=== PATIENT | male | born 1970 | race African-American/Black ===

== ENCOUNTER 2017-03-29 20:25 | Observation (INO) | payer OTHER ==
--- NOTE | ~2017-03-29 | DS ---
Unit #: [id number] #: [id number] Patient: CYNTHIA PARKS [id number] [address] [address] [id number] I MR#: [id number] NAME: CYNTHIA PARKS. ROOM: [facility] Age: 46 Sex: M Admission Date: 03/29/2017 : 1970 Discharge Date: 03/30/2017 Attending Physician: Arlene Morgan M.D. Primary Care Physician: Primary Care Physician No DISCHARGE SUMMARY DISCHARGE DIAGNOSES 1. Acute rhabdomyolysis. 2. Hypovolemic hyponatremia. 3. History of asthma, stable. 4. History of schizophrenia, stable. CONSULTANTS None. PROCEDURES None. DIAGNOSTIC STUDIES LABORATORY: Sodium 130, potassium 3.9, creatinine 1.3, CK 1605. WBC 9.5, hemoglobin 14.9, platelets 208. IMAGING: Chest x-ray normal. ALLERGIES Aspirin. DISCHARGE MEDICATIONS Albuterol one puff inhalation q.i.d. p.r.n. shortness of breath. HOSPITAL COURSE This 46-year-old was admitted because of muscle spasms. 1. Acute rhabdomyolysis. The patient given IV fluids, his CK is trending down. Advised to take p.o. fluids at home. 2. Hypovolemic hyponatremia. Patient received IV fluids and sodium normalized. 3. History of asthma, stable. Continue with albuterol. 4. History of schizophrenia, stable. DISCHARGE INSTRUCTIONS Patient is to follow with his psychiatrist as an outpatient. Currently, he is not taking any kind of medications. The patient did not have any hallucinations or suicidal or homicidal ideations currently. DISPOSITION Discharged home. FOLLOWUP 1. Family physician in 1 to 2 weeks' time. 2. Psychiatrist in 3 to 4 weeks' time. Unit #: [id number] #: [id number] Patient: CYNTHIA PARKS Dictated by... Noris Noel TD: 03/30/2017 20:57 JOB #: [id number] DISCHARGE SUMMARY Page 1 of 1 X Arlene Morgan MD X DISCHARGE SUMMARY
--- NOTE | ~2017-03-29 | EKG ---
PATIENT: CYNTHIA PARKS UNIT #: [id number] Ventricular Rate: 74 BPM Atrial Rate: 74 BPM P-R Interval: 136 ms QRS Duration: 94 ms Q-T Interval: 436 ms QTC Calculation(Bezet): 483 ms P [place]: 57 degrees Calculated R [place]: 18 degrees Calculated T [place]: 21 degrees Diagnosis Line: Normal sinus rhythm Diagnosis Line: Early repolarization Diagnosis Line: Prolonged QT Diagnosis Line: Abnormal ECG Diagnosis Line: When compared with ECG of 25-NOV-2016 18:57, Diagnosis Line: QT has lengthened Diagnosis Line: Confirmed by LUCIE JACKSON MD ([id number]) on 04/01/2017 Diagnosis Line: 9:43:18 AM INTERPRETING MD: MANUEL CHAPMAN
--- NOTE | ~2017-03-29 | CR72 ---
[facility] A Service of [facility] RADIOLOGY TEXT RESULTS PATIENT: CYNTHIA PARKS LOCATION: [facility] 307- : 74 UNIT #: [id number] AGE: [address]: Arlene Morgan MD SEX: M ORDER DR: [id number] [facility] [address] [facility]. [place], [place] [address] [id number] I MR#: [id number] Acc #: [id number] NAME: CYNTHIA PARKS. : 1970 SEX: M STUDY DATE/TIME: 03/29/2017 22:10 UNIT: [address] ROOM: [facility] STUDY DESCRIPTION: CR Chest Single View Portable Attending Physician: Arlene Morgan M.D. Ordering Physician: Emily Soto M.D. Primary Care Physician: Primary Care Physician No MEDICAL IMAGING REPORT This report is preliminary unless electronic signature is present EXAM Portable chest, 03/29/2017 HISTORY Chest congestion with nausea, vomiting and diarrhea for 3 days. FINDINGS A single AP portable view of the chest shows both lungs to be clear. The heart is normal in size. The mediastinal contour is normal. No significant bone abnormalities are seen. IMPRESSION Normal portable chest. Dictated by... Franko Sharpe M.D. THIS IS AN ELECTRONICALLY VERIFIED REPORT Franko Sharpe M.D. at 03/30/2017 10:47 AM BATSHEVA/rio TD: 03/30/2017 08:52 JOB #: [id number] MEDICAL IMAGING REPORT Page 1 of 1 COPY
--- NOTE | ~2017-03-29 | HP ---
Unit #: [id number] #: [id number] Patient: CYNTHIA PARKS [id number] [address] [place], [place] [address] [id number] I MR#: [id number] NAME: CYNTHIA PARKS. ROOM: [facility] Age: 46 Sex: M Admission Date: 03/29/2017 : 1970 Attending Physician: Mai Persno M.D. Primary Care Physician: No Primary Care Physician HISTORY AND PHYSICAL CHIEF COMPLAINT Muscle spasms. HISTORY OF PRESENT ILLNESS The patient is a 46-year-old male with a history of psychotic behavior and known diagnosis of schizophrenia, presented to the emergency room complaining of the muscle spasms. The patient stated the patient has been having these problems since Thursday associated with nausea, vomiting, diarrhea. The patient attributed the symptoms to the workout that he had on Thursday. The patient stated he had been incarcerated from October through August of last year and patient was seen by the psychiatric physician during his detention time. The patient was on Lexapro at that time. The patient has not been on any medication since then. The patient denies any recent abuse of illicit drug abuse. The patient has been admitted for elevated CK levels of 1938 and hyponatremia of 130. The patient denies any fever, chills, nausea or vomiting. PAST MEDICAL HISTORY 1. History of asthma. 2. Schizophrenia. PAST SURGICAL HISTORY Nothing. ALLERGIES He is allergic to Tylenol. SOCIAL HISTORY He smokes (1) . Denies alcohol. Admits to using marijuana on occasion in the past. FAMILY HISTORY He lives with his mother and is unemployed. Reviewed and none. REVIEW OF SYSTEMS Fourteen point review of systems was performed and only pertinent positive findings are described above, remaining are negative. PHYSICAL EXAMINATION GENERAL: The patient is sitting on the bed, not in acute distress. VITALS: Temperature 97.3, pulse 97, respiratory rate 16, blood pressure 143/77, sat'ing 100% at room air. HEAD: Atraumatic, normocephalic. EENT: Pupils equal, round, reactive to light and accommodation. Unit #: [id number] #: [id number] Patient: CYNTHIA PARKS Extraocular movements are intact. NECK: Supple. LUNGS: Decreased air entry at the bases. HEART: Regular rate and rhythm. ABDOMEN: Soft. Positive bowel sounds. EXTREMITIES: No cyanosis, no clubbing. NEUROLOGICAL: Alert, awake, oriented. No gross focal motor deficit. DIAGNOSTIC STUDIES LABORATORY DATA: Glucose 110, BUN 15, creatinine 1.4, sodium 130, potassium 3.5, chloride 95, bicarb 22, calcium 9.6, total protein 8.7, albumin 5, AST 46, ALT 26, alkaline phosphatase 84, amylase 26, lipase 29, CK 1938, troponin less than 0.05. WBC 18.1, hemoglobin 16.1, hematocrit 48, platelets 239, neutrophils 31.3. Urine tox is pending. UA is negative. IMAGING: Chest x-ray is negative. CARDIOVASCULAR: EKG shows normal sinus rhythm with nonspecific ST-T changes and QTC of 483. ASSESSMENT AND PLAN 1. Rhabdomyolysis. 2. Hyponatremia. 3. History of schizophrenia. Plan is to admit patient to observation with telemetry. Continue with normal saline at 25 mL/hour and heart healthy diet. Patient will be seen by the psych for the schizophrenia for the medications. Continue with Duo-Nebs q.4 p.r.n. and will follow with urine tox that is pending. Further recommendations will follow. Dictated by Noris Oliveira TD: 03/30/2017 05:21 JOB #: [id number] HISTORY AND PHYSICAL Page 1 of 1 X X HISTORY AND PHYSICAL
--- NOTE | ~2017-03-29 | CO ---
Unit #: [id number] #: [id number] Patient: CYNTHIA EDMONDSON [id number] [facility] [address] [facility]. [place], [place] [address] [id number] I MR#: [id number] NAME: CYNTHIA EDMONDSON. ROOM: 307 Age: 46 Sex: M Admission Date: 03/29/2017 : 1970 Attending Physician: Arlene Morgan M.D. Consultation Date: 03/30/2017 CONSULTATION REPORT REASON FOR CONSULTATION Depression, anxiety, bipolar disorder, currently on no medication. HISTORY OF PRESENT ILLNESS Mr. Edmondson is a 46-year-old male, seen in room 307, bed 1 on 03/30/2017 at [facility]. The patient was admitted on 03/29/2017 with muscle spasm. The patient reported that he was receiving services when he was incarcerated from October to August last year in [facility]. The patient reported he was treated with Lexapro. The patient reported that he started having problem with the headache and stopped medication. The patient currently denied any suicidal or homicidal ideation. Denied any psychotic symptom. The patient reports that he would like to go without any medication. Denied any use of any drugs or alcohol. The patient denied any use of any recent use of drugs. The patient was admitted for elevated CK level of 1938 and hyponatremia. The patient denied any psychotic symptom at this time. PAST PSYCHIATRIC HISTORY Remarkable for history of schizophrenia, bipolar disorder, depression, history of treatment through [facility]. MEDICAL HISTORY History of asthma. MEDICATIONS Please refer to MAR. FAMILY HISTORY AND SOCIAL HISTORY The patient has a good support system from his girlfriend. No history of abuse. No history of any substance abuse. REVIEW OF SYSTEMS Complete review of systems is unremarkable. MENTAL STATUS EXAMINATION Vital signs; temperature 97.8, pulse 67, respiratory rate 17, blood pressure 132/83, oxygen saturation 100%. General appearance, the patient dressed casually in hospital attire, sitting comfortably in bed, made good eye contact, cooperative. Attention and concentration, fair. Speech, regular rate and coherent. Oriented in time, place, and person. Mood and affect were sad and dysphoric. Thought process, coherent. Thought content, the patient denied any thoughts of harming self or others or any psychotic symptom. Recent and remote memory, fair. Language, intact. Fund of knowledge, fair. Insight and judgment, fair to slightly impaired. Unit #: [id number] #: [id number] Patient: CYNTHIA EDMONDSON DIAGNOSES Psychiatric: Bipolar mood disorder, not otherwise specified, F31.89. Secondary diagnosis: Deferred. Medical diagnosis: Please refer to H and P. Stressors: Psychosocial stressors. ASSESSMENT/PLAN 1. Supportive psychotherapy and psychoeducation provided to the patient. 2. Educated about benefits and side effects of medication and course and prognosis of illness. 3. Advised no medication at this time, as the patient does not want to be on any medication. At this time, the patient was given crisis line number of [facility] [phone] and also please feel free to call if any questions, telephone #[phone]. Dictated by... Noris Camilo/pavan TD: 03/31/2017 00:53 JOB #: [id number] CONSULTATION REPORT Page 1 of 1 X Fly Leyva MD X CONSULTATION REPORT
[2017-03-29 20:36] LABS: BASOPHIL# 0.2 X10e3 (0-0.3); BASOPHIL% 1.1 % (0-2.5); DIFF IND YES; EOSINOPHIL# 0.1 X10e3 (0-0.7); EOSINOPHIL% 0.4 % (0.0-7.0); HEMOGLOBIN 16.1 gm/dL (13.0-16.0); LYMPHOCYTE% 10.8 % (17.0-45.0); MEAN CELL VOLUME 87.2 FL (83-96); MEAN CORPUSCULAR HEMOGLOBIN 29.2 PG (28-34); MEAN CORPUSCULAR HGB CONC 33.5 g/dL (30-36); MEAN PLATELET VOLUME 8.7 FL (6.5-11.5); MONOCYTE# 1.2 X10e3 (0-1.0); MONOCYTE% 6.4 % (3.0-12.0); NEUTROPHIL# 14.7 X10e3 (1.5-7.1); NEUTROPHIL% 81.3 % (40-75); PLATELET COUNT 239 X10e3 (140-420); RED BLOOD COUNT 5.51 X10e (3.90-5.60); RED CELL DISTRIBUTION WIDTH 12.8 % (11.0-15.5); WHITE BLOOD COUNT 18.1 X10e3 (4.0-10.5)
[2017-03-29 20:53] LABS: PLATELET ESTIMATE NORMAL (NORMAL); RBC NORMAL YES
[2017-03-29 20:55] LABS: BILIRUBIN, DIRECT 0.1 mg/dL (0.0-0.2); BILIRUBIN,INDIRECT 0.7 mg/dL (0.0-0.9); BILIRUBIN,TOTAL 0.8 mg/dL (0.2-2.0); BUN/CREATININE RATIO 10.71; CALCIUM SERUM 9.6 mg/dL (8.4-10.2); CREATININE SERUM 1.4 mg/dL (0.6-1.4); GLOM FILT RATE Estimated 70.3 mL/min (>60); POTASSIUM 3.5 mmol/L (3.5-5.1); PROTEIN TOTAL SERUM 8.7 g/dL (6.0-8.3)
[2017-03-29 21:01] LABS: URINE SOURCE CLEAN CATCH
[2017-03-29 21:10] LABS: URINE APPEARANCE CLEAR; URINE BILIRUBIN NEG (NEG); URINE BLOOD NEG (NEG); URINE COLOR YELLOW; URINE GLUCOSE NEG (NEG); URINE KETONE 1+ (NEG); URINE LEUKOCYTE ESTERASE NEG (NEG); URINE NITRATE NEG (NEG); URINE PROTEIN NEG (NEG); URINE SPECIFIC GRAVITY 1.022 (1.003-1.035)
[2017-03-29 21:16] LABS: CULTURE INDICATED? NO
[2017-03-29 22:59] LABS: POC - CKMB 3.8 ng/mL (0.0-7.9); POC - TROPONIN <0.05 ng/mL (<=0.05)
[2017-03-29 23:29] LABS: AMPHETAMINE NEG (NEG); BARBITURATES NEG (NEG); BENZODIAZEPINES NEG (NEG); COCAINE NEG (NEG); MARIJUANA POS (NEG); OPIATES NEG (NEG); TRICYCLIC ANTIDEPRESSANTS POS (NEG); U METHADONE NEG (NEG)
[2017-03-30] MEDS ORDERED: ALBUTEROL17 GM INH (01:06)
[2017-03-30 08:01] LABS: BASOPHIL# 0.1 X10e3 (0-0.3); BASOPHIL% 1.1 % (0-2.5); EOSINOPHIL# 0.2 X10e3 (0-0.7); EOSINOPHIL% 2.4 % (0.0-7.0); HEMATOCRIT 46.4 % (38.0-50.0); HEMOGLOBIN 14.9 gm/dL (13.0-16.0); LYMPHOCYTE# 3.6 X10e3 (1.0-3.5); LYMPHOCYTE% 38.5 % (17.0-45.0); MEAN CORPUSCULAR HEMOGLOBIN 29.5 PG (28-34); MEAN CORPUSCULAR HGB CONC 32.1 g/dL (30-36); MEAN PLATELET VOLUME 8.9 FL (6.5-11.5); MONOCYTE# 0.9 X10e3 (0-1.0); MONOCYTE% 9.5 % (3.0-12.0); NEUTROPHIL# 4.6 X10e3 (1.5-7.1); NEUTROPHIL% 48.5 % (40-75); PLATELET COUNT 208 X10e3 (140-420); RED BLOOD COUNT 5.06 X10e (3.90-5.60); RED CELL DISTRIBUTION WIDTH 13.6 % (11.0-15.5); WHITE BLOOD COUNT 9.5 X10e3 (4.0-10.5)
[2017-03-30 08:02] LABS: DIFF IND NO; MEAN CELL VOLUME 91.8 FL (83-96)
[2017-03-30 08:56] LABS: BUN/CREATININE RATIO 8.46; CALCIUM SERUM 8.6 mg/dL (8.4-10.2); CREATININE SERUM 1.3 mg/dL (0.6-1.4); GLOM FILT RATE Estimated 76.9 mL/min (>60); POTASSIUM 3.9 mmol/L (3.5-5.1)
== END 2017-03-30 13:30 | disposition home or self-care (01) ==
LOC: CED 20:25 → CEDOF 23:30 → C3A PCU 03-30 00:57
PROVIDERS: Emergency Medicine
DX: M62.82 Rhabdomyolysis (principal); E87.1 Hypo-osmolality and hyponatremia; F31.9 Bipolar disorder, unspecified; J45.909 Unspecified asthma, uncomplicated; Z88.6 Allergy status to analgesic agent
CPT/HCPCS: 36415; 71010; 80048; 80076; 80307; 81003; 82150; 82550; 82553; 83690; 84484; 85025; 93005; 94640; 94760; 96361; 96372; 96374; 99285; G0378; J1650; J2405